=== PATIENT | male | born 1985 ===

== ENCOUNTER → 2022-11-27 | Outpatient (CLI) | payer SELFPAY ==
[2022-11-29 01:08] LABS: CHLAMYDIA TRACHOMATIS, NAA Negative (Negative)
[2022-12-01 09:10] LABS: HSV-1 DNA Negative (Negative); HSV-2 DNA Negative (Negative)
== END | disposition home or self-care (01) ==
LOC: EDBD 10:41 → LAB SHORT 10:41 → LAB 10:41
PROVIDERS: Nurse Practitioner Family
DX: N34.1 Nonspecific urethritis (principal)
CPT/HCPCS: 87070; 87077; 87147; 87186; 87205; 87491; 87529; 87591